=== PATIENT | male | born 2000 | race American Indian/Alaskan Native ===

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

== ENCOUNTER 2024-06-07 02:26 | Emergency (ER) | payer OTHER ==
[~2024-06-07] VITALS: Ht 167.6 cm; Wt 70.3 kg
[2024-06-07] MEDS ORDERED: ACETAMINOPHEN 500 MG GEL..CAP PO STA (04:00)
== END 2024-06-07 04:45 | disposition home or self-care (01) ==
LOC: ER 02:27
DX: R53.81 Other malaise (principal); V49.9XXA Car occupant (driver) (passenger) injured in unspecified traffic accident, initial encounter; Y93.89 Activity, other specified; Y92.89 Other specified places as the place of occurrence of the external cause; Y99.8 Other external cause status